=== PATIENT | female | born 1950 | race African-American/Black ===

== ENCOUNTER → 2020-04-16 07:44 | Outpatient (CLI) | payer MEDICARE, SELFPAY ==
--- NOTE | ~2020-04-16 | MMUS_ITS ---
EXAMINATION: MM diagnostic maria guadalupe BI w [facility], US breast LT limited HISTORY: Lower left breast pain TECHNIQUE: Craniocaudal, mediolateral, and mediolateral oblique 3-D tomosynthesis images of the adrien ts were performed and synthetic 2-D images were generated. CAD analysis was submitted and interpreted . High resolution limited left breast ultrasound was performed. COMPARISON: 08/03/2017, 05/20/2011, 12/02/2004 BREAST PARENCHYMAL COMPOSITION: The breasts are heterogeneously dense, which may obscure small masses . FINDINGS: MAMMOGRAPHIC FINDINGS: There is no evidence of suspicious mass, calcification, or architectural distortion in either breast to suggest malignancy. There has been no suspicious interval change. No mammographic correlate is id entified for the reported left breast pain. ULTRASOUND: There is no evidence of focal abnormal solid or cystic lesion in the vicinity of the patient's left b reast pain IMPRESSION: 1. No specific mammographic or sonographic correlate is identified for the patient's left breast pain . Further evaluation at this time should be based on clinical assessment. Continued follow-up physica l examination is recommended. 2. Recommend routine screening mammography in one year. BI-RADS Category 1: Negative Reviewed, dictated and finalized at location A. LPN IMPRESSION: 1. No specific mammographic or sonographic correlate is identified for the paulina ent's left breast pain. Further evaluation at this time should be based on clin ical assessment. Continued follow-up physical examination is recommended. 2. Recommend routine screening mammography in one year. BI-RADS Category 1: Negative
== END ==
PROVIDERS: PCP Internal Medicine; Visit Provider Internal Medicine
DX: N64.4 Mastodynia (principal)
CPT/HCPCS: 76642; 77062; 77066; G0279

== ENCOUNTER 2022-05-05 14:23 | Emergency (ER) | payer MEDICARE, SELFPAY ==
--- NOTE | ~2022-05-05 | XR_ITS ---
EXAM: XR hip RT min 2V DATE: 05/05/2022 21:21 HISTORY: pain x 1 week, PT. STATES THEY HAVE FALLEN 3 TIMES TODAY . COMPARISON: None available. FINDINGS: Normal mineralization. No fracture or dislocation. No lytic or blastic lesion. Degenerativ e lumbar disc disease. Moderate arthritic change in the right hip. Mild osteitis pubis. No erosion or periosteal change. Soft tissues within normal limits. IMPRESSION: No acute osseous finding in the right hip. Reviewed, dictated and finalized at location K. RTAINMENT REPORTER
--- NOTE | ~2022-05-05 | US_ITS ---
EXAMINATION: US venous doppler LE RT DATE: 05/05/2022 21:39 INDICATION: swelling/cramping/pain . TECHNIQUE: Grayscale images without and with compression and Doppler images of the right lower extrem ity veins were obtained. COMPARISON: None FINDINGS: The right common femoral vein, profunda (deep) femoral vein, femoral vein, popliteal vein, peroneal v ein, posterior tibial veins, gastrocnemius vein, and greater saphenous vein are patent. IMPRESSION: 1. Patent right lower extremity veins. No evidence of deep venous thrombosis. Reviewed, dictated and finalized at location K. OMER SUPPORT MANAGER
[2022-05-05 14:40] VITALS: BP 171/82; PULSE 98; RESP 16; TEMP 36.6; O2SAT 99
[2022-05-05 21:01] VITALS: BP 195/106; PULSE 88; RESP 16; O2SAT 100
--- NOTE | 2022-05-05 21:33 | ED.LOWEXIN ---
HPI - Extremity Injury (Lower) General Chief Complaint: Extremity Injury, Lower Stated Complaint: R. leg pain, gave out. Time Seen by Provider: 05/05/22 20:56 History of Present Illness HPI Narrative: Patient is a 72-year-old female here for evaluation of right lower extremity pain over the past week. Patient states that the pain originates in her hip and sends shooting pains down into her foot. States that she has been unable to find a comfortable position, worse with movement and when she is trying to sleep. She states that her leg feels swollen as well. Denies injury to her extremity. She is attempted ibuprofen and Tylenol in addition to topical patches without relief of her pain. Presents to the ED today because her leg gave out on her, causing her to fall. Denies head injury. Related Data Home Medications Medication Instructions Recorded Confirmed cholecalciferol (vitamin D3) 50 50 mcg PO DAILY 11/20/20 02/20/22 mcg (2,000 unit) tablet Allergies Allergy/AdvReac Type Severity Reaction Status Date / Time Penicillins Allergy Unknown Unknown Verified 05/05/22 21:06 Review of Systems Review of Systems: Gen.: Denies fevers or chills Eyes: Denies eye pain or visual change ENT: Denies congestion Respiratory: Denies shortness of breath or cough CV: Denies chest pain or palpitations GI: Denies abdominal pain nausea, emesis or diarrhea denies burning, urgency, frequency or hematuria Musculoskeletal: Reports right lower extremity pain Neuro: Denies numbness, tingling, weakness or focal weakness Skin: Denies rash Except as documented, all other systems reviewed and negative [facility] Past Medical History Medical History Abnormal finding of blood chemistry, unspecified Anxiety and depression Benign essential hypertension BMI 25.0-25.9,adult BMI 26.0-26.9,adult Breast pain, left Cataracts, bilateral Colon cancer screening Diabetes Encounter for Medicare annual wellness exam Encounter for routine adult health examination without abnormal findings Encounter for screening mammogram for malignant neoplasm of breast FHx: colon cancer Grief Hearing loss Hx of colonic polyps Hyperlipidemia Hypothyroidism (acquired) Insomnia On continuous churn buttermaker drug therapy Overactive bladder Post menopausal syndrome Pre-diabetes Vitamin D deficiency Surgical History Surgical History S/P cataract extraction Family History Family History Father Diabetes mellitus Malignant neoplasm of prostate Family history of diabetes mellitus in first degree relative Mother Cerebrovascular accident Other Depression Hypertension Social History Social History Smoking status: Never smoker Second hand tobacco smoke exposure: No Alcohol intake: current Lack of Transportation: No Lack of Food: Never True Current Housing: I Have Housing Concerned About Future Housing: No Difficulty Paying Gas/Electric Bills: No Difficulty Paying for Meds: No Currently Unemployed: No Education: Master's Degree or Higher Difficulty w/ Childcare or Family Care: No Living arrangements: with family Gender identity (if verbalized by the patient): Female Exam Narrative: APPEARANCE: Well appearing, no pain in distress, well-nourished. Head: Normocephalic and atraumatic. EYES: PERRLA/EOMI, conjunctivae clear NOSE: No nasal drainage EARS: External ear normal in appearance THROAT: Oropharynx is clear. Mucous membranes are moist. NECK: Supple. No adenopathy, no masses. RESPIRATORY: Airway patent, respirations nonlabored. Clear to auscultation bilaterally, no rales, rhonchi, wheezing. CARDIOVASCULAR: Regular rate and rhythm without murmurs, rubs, or gallops. ABDOMINAL: Normoactive bowel sounds. Soft, nonten
[2022-05-05] MEDS: TIZANIDINE HCL 2 MG TABLET PO (21:45)
[2022-05-05] MEDS: MELOXICAM 7.5 MG TABLET PO (21:45)
[2022-05-05 21:56] LABS: Basophils Percent Auto 0.5 % (0.2-1.2); Eosinophils Absolute Auto 0.1 K/mm3 (0-0.3); Eosinophils Percent Auto 1.4 % (0-4.4); Hematocrit 43.3 % (37.0-47.0); Hemoglobin 13.8 g/dL (12.0-15.0); Immature Granulocyte Absolute 0.01 K/mm3 (0.00-0.031); Immature Granulocyte Percent A 0.2 % (0-0.5); Lymphocytes Absolute Auto 2.54 K/mm3 (0.9-3.2); Lymphocytes Percent Auto 43.6 % (18.3-44.2); Mean Corpuscular HGB Conc 31.9 g/dl (32-36); Mean Corpuscular Hemoglobin 27.1 pg (26-34); Mean Corpuscular Volume 84.9 fl (80-100); Mean Platelet Volume 11.1 fl (7.4-10.4); Monocytes Absolute Auto 0.5 K/mm3 (0.1-0.6); Monocytes Percent Auto 8.2 % (2.6-8.5); Neutrophils Absolute Auto 2.7 K/mm3 (1.3-6.7); Neutrophils Percent Auto 46.1 % (45.5-73.1); Platelet Count Result 229 k/mm3 (150-375); Red Cell Distribution Width 13.6 % (11.5-14.5); White Blood Count 5.8 K/mm3 (4.5-10.0)
[2022-05-05 22:04] VITALS: BP 166/79; PULSE 74; RESP 16; O2SAT 98
[2022-05-05 22:05] LABS: Anion Gap 6 mmol/L (8-16); Blood Urea Nitrogen 12 mg/dL (7-17); Calcium 9.3 mg/dL (8.4-10.2); Carbon Dioxide 28 mmol/L (22-30); Chloride 104 mmol/L (98-107); Creatine Kinase 88 U/L (30-135); Estimated CRCL calculation 53 ml/min; Estimated Glomerular Filt Rate > 60; Glucose 85 mg/dL (65-110); Magnesium 2.2 mg/dL (1.6-2.3); Potassium 3.8 mmol/L (3.4-5.0); Sodium 138 mmol/L (137-145)
[2022-05-05 23:07] VITALS: BP 134/74; PULSE 78; RESP 16; O2SAT 99
== END 2022-05-05 23:08 | disposition home or self-care (01) ==
PROVIDERS: Emergency Provider Physician Assistant; PCP Internal Medicine
DX: M79.661 Pain in right lower leg (principal); E78.5 Hyperlipidemia, unspecified; E03.9 Hypothyroidism, unspecified; E55.9 Vitamin D deficiency, unspecified; E11.9 Type 2 diabetes mellitus without complications
CPT/HCPCS: 36415; 73502; 80048; 82550; 83735; 85025; 93971; 99284; A9270

== ENCOUNTER 2022-05-15 12:29 | Outpatient (CLI) | payer MEDICARE, SELFPAY ==
--- NOTE | ~2022-05-15 | CT_ITS ---
EXAMINATION: CT hip RT wo con DATE: 05/15/2022 13:08 INDICATION: Right hip and pelvic pain TECHNIQUE: Computed tomography (CT) of the right hip was performed without intravenous contrast. CT r econstructions of the right hip were obtained in the axial, coronal, and sagittal planes. The dose-le ngth product was 347.5 mGy-cm. COMPARISON: Right hip radiographs dated 05/05/2022 FINDINGS: Bone alignment is normal. No fracture. No suspected osteonecrosis. Mild right hip osteoarthritis with slight axial predominant nonuniform joint space narrowing and small marginal osteophytes along both the femoral head and acetabulum. Similar findings seen at the contralateral left hip. No hip joint ef fusion. 15 degrees lumbar levoscoliosis on the laborer yard topogram with mild to moderate spondylosis. Mild bilateral sacral erect osteoarthritis. Small fat-containing umbilical hernia. Visualized portion of the bowels are normal including a normal appendix. The uterus is not identified and has likely been s urgically resected. Decompressed bladder is unremarkable. No free fluid in the pelvis. Visualized mus culature in the pelvis and proximal thighs appears normal. 15 degrees lumbar levoscoliosis on the sco ut topogram with mild to moderate spondylosis. Mild bilateral sacral erect osteoarthritis. IMPRESSION: 1. Mild osteoarthritis at the bilateral hip and sacral iliac joints. No acute osseous abnormality. 2. 15 degrees lumbar levoscoliosis with mild to moderate spondylosis. Reviewed, dictated and finalized at location A. S INSPECTOR IMPRESSION: 1. Mild osteoarthritis at the bilateral hip and sacral iliac joints. No acute o sseous abnormality. 2. 15 degrees lumbar levoscoliosis with mild to moderate spondylosis.
== END 2022-05-15 12:30 | disposition home or self-care (01) ==
LOC: ANHIMG 12:31
PROVIDERS: PCP Internal Medicine; Visit Provider Internal Medicine
DX: M16.0 Bilateral primary osteoarthritis of hip (principal); M53.3 Sacrococcygeal disorders, not elsewhere classified
CPT/HCPCS: 73700